=== PATIENT | female | born 1945 | race Caucasian/White ===

== ENCOUNTER 2020-11-26 21:42 | Emergency (ER) | payer MEDICARE, OTHER ==
[~2020-11-26] VITALS: Ht 152.4 cm; Wt 63.5 kg
--- NOTE | 2020-11-26 22:05 | NUR ---
PATIENT BIBDAUGHTER C/O LEFT FOREARM AND WRIST PAIN S/P SLIP AND FALL OVER A DOG. PATIENT IS A/O X 4, RR EVEN AND UNLABORED, NO SOB NOTED. PATIENT CONNECTED TO MONITOR.
--- NOTE | 2020-11-26 22:20 | NUR ---
RAD AT BEDSIDE
--- NOTE | 2020-11-26 22:49 | NUR ---
NUMBER FOR DAUGHTER [phone] DEYSI
[2020-11-26] MEDS ORDERED: ACETAMINOPHEN 325 MG TABLET ONE (22:54)
[2020-11-26] MEDS ORDERED: ACETAMINOPHEN 325 MG TABLET PO ONE (23:00)
[2020-11-26] MEDS ORDERED: HYDR-3972 PO (23:05)
--- NOTE | 2020-11-26 23:15 | NUR ---
EMT AT BEDSIDE
[2020-11-26 23:33] VITALS: BP 131/64
--- NOTE | 2020-11-26 23:33 | NUR ---
Patient discharged to home in stable condition. Rx and Written and verbal after care instructions given. Patient verbalizes understanding of instruction.
== END 2020-11-26 23:34 | disposition home or self-care (01) ==
LOC: ER 21:42
DX: S52.592A Other fractures of lower end of left radius, initial encounter for closed fracture (principal); I10 Essential (primary) hypertension; E03.9 Hypothyroidism, unspecified; Z88.6 Allergy status to analgesic agent; Z79.899 Other long term (current) drug therapy; W01.0XXA Fall on same level from slipping, tripping and stumbling without subsequent striking against object, initial encounter; Y93.K1 Activity, walking an animal; Y92.89 Other specified places as the place of occurrence of the external cause; Y99.8 Other external cause status
CPT/HCPCS: 73090-TC; 73130-TC